=== PATIENT | female | born 1950 | race Hispanic/Latino ===

== ENCOUNTER 2018-01-13 11:34 | Emergency (ER) | payer MEDICARE ==
[~2018-01-13] VITALS: Ht 165.1 cm; Wt 88.9 kg
--- OUTSIDE RECORDS SUMMARY | 2018-01-13 11:37 | XMS REPORT | Summary of Care ---
Author Author [facility] Organization [facility] Address Unknown Phone Unavailable Encounter HQ Jacob(FIN) [id number] Date(s): 03/09/17 - 03/10/17 [facility] [address] [place] [address]- Discharge Disposition: Home or Self Care Attending Physician: Willian Seymour MD Admitting Physician: Willian Seymour MD Vital Signs 1 2 3 Most recent to oldest [Reference Range]: 167.64 cm (03/10/17 6:13 AM) 167.64 cm (03/09/17 10:49 PM) Height 98.3 DegF (03/10/17 3:46 PM) 97.9 DegF (03/10/17 10:53 AM) 98.2 DegF (03/10/17 7:38 AM) Temperature Oral [96.4-99.1 DegF] 143/73 mmHg *HI* (03/10/17 3:46 PM) 136/70 mmHg (03/10/17 10:53 AM) 144/64 mmHg *HI* (03/10/17 7:38 AM) Blood Pressure [90-140/60-90 mmHg] 17 BRMIN (03/10/17 3:46 PM) 17 BRMIN (03/10/17 10:53 AM) 17 BRMIN (03/10/17 7:38 AM) Respiratory Rate [14-20 BRMIN] 67 bpm (03/10/17 3:46 PM) 65 bpm (03/10/17 10:53 AM) 64 bpm (03/10/17 7:38 AM) Peripheral Pulse Rate [60-100 bpm] 90.455 kg (03/10/17 6:13 AM) 90.455 kg (03/09/17 10:49 PM) Weight 32.19 m2 (03/10/17 6:13 AM) 32.19 m2 (03/09/17 10:49 PM) Body Mass Index Problem List Condition Effective Dates Status Health Status Informant Hyperlipemia(Confirm Resolved ed) HTN Resolved (hypertension)(Confi rmed) Allergies, Adverse Reactions, Alerts Substance Reaction Severity Status NKDA Active Medications 1/2 NS 1,000 mL 1,000 mL, Rate: 75 ml/hr, Infuse over: 13.3 hr, Route: IV, Dosing Weight 90.455 kg, Total Volume: 1,000, Start date: 03/10/17 9:32:00 ELECTRICAL WIRER, Duration: 30 day, Sto p date: 04/09/17 9:31:00 ELECTRICAL WIRER, 2.08, m2 Start Date: 03/10/17 Stop Date: 03/10/17 Status: Discontinued amLODIPine 2.5 mg oral tablet 2.5 mg=1 tab, PO, Daily, # 30 tab, 0 Refill(s) Start Date: 03/10/17 Status: Ordered aspirin 81 mg, Route: PO, Drug form: ECTAB, ONCE, Dosing Weight 90.455, kg, Priority: ST AT, Start date: 03/10/17 5:33:00 ELECTRICAL WIRER, Stop date: 03/10/17 5:33:00 ELECTRICAL WIRER Start Date: 03/10/17 Stop Date: 03/10/17 Status: Completed aspirin 81 mg, Route: PO, Drug form: ECTAB, ONCE, Dosing Weight 90.455, kg, Priority: ST AT, Start date: 03/10/17 2:35:00 ELECTRICAL WIRER, Stop date: 03/10/17 2:35:00 ELECTRICAL WIRER Start Date: 03/10/17 Stop Date: 03/10/17 Status: Completed aspirin 81 mg tablet, chewable 81 mg, 1 tab, Route: PO, Drug form: CHEWTAB, Daily, Dosing Weight 90.455, kg, St art date: 03/10/17 9:00:00 ELECTRICAL WIRER, Duration: 30 day, Stop date: 04/08/17 9:00:00 CS T Notes: Take with food. Start Date: 03/10/17 Stop Date: 03/10/17 Status: Discontinued aspirin 81 mg tablet, chewable 81 mg=1 tab, PO, Daily, # 100 tab, 0 Refill(s) Start Date: 03/10/17 Status: Ordered atorvastatin 10 mg oral tablet 20 mg=2 tab, PO, Daily, # 100 tab, 0 Refill(s) Start Date: 03/10/17 Status: Ordered dexamethasone 10 mg, Route: IVP, ONCE, Dosing Weight 90.455, kg, Priority: STAT, Start date: 05/11/16 2:35:00 ELECTRICAL WIRER, Stop date: 03/10/17 2:35:00 ELECTRICAL WIRER Start Date: 03/10/17 Stop Date: 03/10/17 Status: Completed famotidine 20 mg, Route: IVP, ONCE, Dosing Weight 90.455, kg, Priority: STAT, Start date: 05/11/16 5:33:00 ELECTRICAL WIRER, Stop date: 03/10/17 5:33:00 ELECTRICAL WIRER Start Date: 03/10/17 Stop Date: 03/10/17 Status: Completed hydrochlorothiazide 12.5 mg oral capsule 12.5 mg, 1 tab, Route: PO, Drug form: TAB, Daily, Dosing Weight 90.455, kg, Star t date: 03/10/17 12:07:00 ELECTRICAL WIRER, Duration: 30 day, Stop date: 04/09/17 9:00:00 ELECTRICAL WIRER Notes: (Same as: Hydrodiuril). Give with food. Start Date: 03/10/17 Stop Date: 03/10/17 Status: Discontinued hydrochlorothiazide 12.5 mg oral tablet 12.5 mg=1 tab, PO, Daily, # 30 tab, 0 Refill(s) Start Date: 03/10/17 Status: Ordered Lipitor 20 mg, 2 tab, Route: PO, Drug form: TAB, Daily, Start date: 03/10/17 12:08:00 CS T, Stop date: 04/09/17 9:00:00 ELECTRICAL WIRER Notes: (Same As: Lipitor) Start Date: 03/10/17 Stop Date: 03/10/17 Status: Discontinued losartan 25 mg, 1 tab, Route: PO, Drug form: TAB, Daily, Dosing Weight 90.455, kg, Start date: 03/10/17 12:07:00 ELECTRICAL WIRER, Duration: 30 day, Stop date: 04/09/17 9:00:00 ELECTRICAL WIRER Notes: (Same as: Cozaar) Start Date: 03/10/17 Stop Date: 03/10/17 Status: Discontinued losartan 25 mg oral tablet 25 mg=1 tab, PO, Daily, # 30 tab, 0 Refill(s) Start Date: 03/10/17 Status: Ordered lovastatin 40 mg, Route: PO, Drug form: TAB, Bedtime, Dosing Weight 90.455, kg, Start date: 03/10/17 21:00:00 ELECTRICAL WIRER, Duration: 30 day, Stop date: 04/08/17 21:00:00 ELECTRICAL WIRER Start Date: 03/10/17 Stop Date: 03/10/17 Status: Deleted lovastatin 40 mg oral tablet 40 mg=1 tab, PO, Bedtime, # 30 tab, 0 Refill(s) Start Date: 03/10/17 Stop Date: 03/10/17 Status: Discontinued morphine Sulfate 2 mg, 1 mL, Route: IVP, Drug form: INJ, Q15Min, Dosing Weight 90.455, kg, PRN Ch est Pain, Start date: 03/10/17 6:57:00 ELECTRICAL WIRER, Duration: 2 doses or times, Stop pavel e: Limited # of times Notes: (Same as:MORPhine Sulfate) Start Date: 03/10/17 Stop Date: 03/10/17 Status: Discontinued nitroglycerin SL Tab 0.4 mg, 1 tab, Route: SL, Drug form: TAB, Q5Min, Dosing Weight 90.455, kg, PRN C hest Pain, Start date: 03/10/17 6:57:00 ELECTRICAL WIRER, Duration: 3 doses or times, Stop da te: Limited # of times Notes: (Same as:Nitroquick, Nitrostat)"Do Not Crush" Sublingual tablet Start Date: 03/10/17 Stop Date: 03/10/17 Status: Discontinued ondansetron 4 mg, 1 tab, Route: PO, Drug form: TAB, Q8H, Dosing Weight 90.455, kg, PRN Nause a & Vomiting, Start date: 03/10/17 6:57:00 ELECTRICAL WIRER, Duration: 30 day, Stop date: 04/09/17 6:56:00 ELECTRICAL WIRER Notes: (Same as: Zofran) Start Date: 03/10/17 Stop Date: 03/10/17 Status: Discontinued pneumococcal 13-valent vaccine 0.5 mL, Route: IM, Drug Form: INJ, Daily, Start date: 03/11/17 9:00:00 ELECTRICAL WIRER, Dura tion: 1 doses or times, Stop date: 03/11/17 9:00:00 ELECTRICAL WIRER Notes: Shake well prior to use (Same as: Yuridia 13) Start Date: 03/11/17 Stop Date: 03/10/17 Status: Canceled pneumococcal 13-valent vaccine 0.5 mL, Route: IM, Drug Form: INJ, Daily, Start date: 03/10/17 9:00:00 ELECTRICAL WIRER, Dura tion: 1 doses or times, Stop date: 03/10/17 9:00:00 ELECTRICAL WIRER Notes: Shake well prior to use (Same as: Yuridia 13) Start Date: 03/10/17 Stop Date: 03/10/17 Status: Completed potassium chloride 20 mEq oral tablet, extended release 20 mEq=1 tab, PO, Daily, # 30 tab, 0 Refill(s) Start Date: 03/10/17 Status: Ordered Robitussin-DM 5 mL, Route: PO, Drug Form: SYRP, Dosing Weight 90.455, kg, Q4H, PRN as needed f or cough, Start date: 03/10/17 9:31:00 ELECTRICAL WIRER, Duration: 30 day, Stop date: 8 9:30:00 ELECTRICAL WIRER Notes: (dextromethorphan-guaifenesin 10-100mg/5ml 10 ml oral SOLN ud) (Same as: Robitussin DM) Start Date: 03/10/17 Stop Date: 03/10/17 Status: Discontinued Saline Flush 0.9% 10 ml, Route: IVP, Drug Form: INJ, Dosing Weight 90.455, kg, Q12H, Start date: 05/11/16 9:00:00 ELECTRICAL WIRER, Duration: 30 day, Stop date: 04/08/17 21:00:00 ELECTRICAL WIRER Notes: (Same as: BD Posiflush) Start Date: 03/10/17 Stop Date: 03/10/17 Status: Discontinued Saline Flush 0.9% 10 ml, Route: IVP, Drug Form: INJ, Dosing Weight 90.455, kg, PRN, PRN Line Flush , Start date: 03/10/17 6:57:00 ELECTRICAL WIRER, Duration: 30 day, Stop date: 04/09/17 6:56:0 0 ELECTRICAL WIRER Notes: (Same as: BD Posiflush) Start Date: 03/10/17 Stop Date: 03/10/17 Status: Discontinued Saline Flush 0.9% 10 mL, Route: IVP, Drug Form: INJ, Dosing Weight 90.455, kg, PRN, PRN Line Flush , Start date: 03/09/17 22:56:00 ELECTRICAL WIRER, Duration: 30 day, Stop date: 04/08/17 22:55 :00 ELECTRICAL WIRER Notes: (Same as: BD Posiflush) Start Date: 03/09/17 Stop Date: 03/10/17 Status: Discontinued Results ELECTROLYTES 1 2 3 Most recent to oldest [Reference Range]: 142 mEq/L (03/10/17 10:24 AM) 138 mEq/L (03/10/17 12:55 AM) Sodium Lvl [135-145 mEq/L] 3.7 mEq/L (03/10/17 10:24 AM) 3.6 mEq/L (03/10/17 12:55 AM) Potassium Lvl [3.5-5.1 mEq/L] 106 mEq/L (03/10/17 10:24 AM) 105 mEq/L (03/10/17 12:55 AM) Chloride Lvl [95-109 mEq/L] 27 mEq/L (03/10/17 10:24 AM) 27 mEq/L (03/10/17 12:55 AM) CO2 [24-32 mEq/L] 12.7 mEq/L (03/10/17 10:24 AM) 9.6 mEq/L *LOW* (03/10/17 12:55 AM) AGAP [10.0-20.0 mEq/L] CHEM PANEL 1 2 3 Most recent to oldest [Reference Range]: 0.60 mg/dL (03/10/17 10:24 AM) 0.68 mg/dL (03/10/17 12:55 AM) Creatinine Lvl [0.50-1.40 mg/dL] 94 mL/min/1.73m2 1 *NA* (03/10/17 10:24 AM) 90 mL/min/1.73m2 2 *NA* (03/10/17 12:55 AM) eGFR 13 mg/dL (03/10/17 10:24 AM) 18 mg/dL (03/10/17 12:55 AM) BUN [7-22 mg/dL] 26 *HI* (03/10/17 12:55 AM) B/C Ratio [6-25] 166 mg/dL *HI* (03/10/17 10:24 AM) 107 mg/dL *HI* (03/10/17 12:55 AM) Glucose Lvl [70-99 mg/dL] 7.1 g/dL (03/10/17 10:24 AM) 7.3 g/dL (03/10/17 12:55 AM) Total Protein [6.4-8.4 g/dL] 3.6 g/dL (03/10/17 10:24 AM) 3.7 g/dL (03/10/17 12:55 AM) Albumin Lvl [3.5-5.0 g/dL] 3.5 g/dL (03/10/17 10:24 AM) 3.6 g/dL (03/10/17 12:55 AM) Globulin [2.7-4.2 g/dL] 1.0 (03/10/17 10:24 AM) 1.0 (03/10/17 12:55 AM) A/G Ratio [0.7-1.6] 8.6 mg/dL (03/10/17 10:24 AM) 9.1 mg/dL (03/10/17 12:55 AM) Calcium Lvl [8.5-10.5 mg/dL] 34 unit/L (03/10/17 10:24 AM) 34 unit/L (03/10/17 12:55 AM) ALT [0-65 unit/L] 24 unit/L (03/10/17 10:24 AM) 25 unit/L (03/10/17 12:55 AM) AST [0-37 unit/L] 71 unit/L (03/10/17 10:24 AM) 84 unit/L (03/10/17 12:55 AM) Alk Phos [39-136 unit/L] 0.3 mg/dL (03/10/17 10:24 AM) 0.2 mg/dL (03/10/17 12:55 AM) Bili Total [0.2-1.3 mg/dL] <0.1 mg/dL (03/10/17 10:24 AM) Bili Direct [0.0-0.3 mg/dL] >0.2 mg/dL (03/10/17 10:24 AM) Bili Indirect [0.0-1.0 mg/dL] 1Result Comment: The eGFR is calculated using the CKD-EPI formula. In most young, healthy individuals the eGFR will be >90 mL/min/1.73m2. The eGFR declines with age. An eGFR of 60-89 may be normal in some populations, particularly the elderly, for whom the CKD-EPI formula has not been extensively validated. Use of the eGFR is not recommended in the following populations: Individuals with unstable creatinine concentrations, including patients and those with serious co-morbid conditions. Patients with extremes in muscle mass or diet. The data above are obtained from the National Kid[employer] Disease Education Program ( NKDEP) which additionally recommends that when the eGFR is used in patients with extremes of body mass index for purposes of drug dosing, the eGFR should be mul tiplied by the estimated BMI. 2Result Comment: The eGFR is calculated using the CKD-EPI formula. In most young, healthy individuals the eGFR will be >90 mL/min/1.73m2. The eGFR declines with age. An eGFR of 60-89 may be normal in some populations, particularly the elderly, for whom the CKD-EPI formula has not been extensively validated. Use of the eGFR is not recommended in the following populations: Individuals with unstable creatinine concentrations, including patients and those with serious co-morbid conditions. Patients with extremes in muscle mass or diet. The data above are obtained from the National Kidney Disease Education Program ( NKDEP) which additionally recommends that when the eGFR is used in patients with extremes of body mass index for purposes of drug dosing, the eGFR should be mul tiplied by the estimated BMI. CARDIAC ENZYMES 1 2 3 Most recent to oldest [Reference Range]: 74 unit/L (03/10/17 10:24 AM) 77 unit/L (03/10/17 12:55 AM) Total CK [12-191 unit/L] 1.5 ng/mL (03/10/17 12:55 AM) CK MB [0.5-3.6 ng/mL] 1.9 (03/10/17 12:55 AM) CK MB Index [0.0-2.5] 0.02 ng/mL (12/23/17 10:24 AM) 0.03 ng/mL (03/10/17 3:39 AM) <0.02 ng/mL (03/10/17 12:55 AM) Troponin-I [0.00-0.40 ng/mL] 71 pg/mL (03/10/17 12:55 AM) BNP [<=100 pg/mL] LIPIDS 1 2 3 Most recent to oldest [Reference Range]: 2.59 *LOW* (03/10/17 10:24 AM) CHD Risk [3.90-5.80] 181 mg/dL (03/10/17 10:24 AM) Chol [<=199 mg/dL] 59 mg/dL (03/10/17 10:24 AM) Trig [<=149 mg/dL] 70 mg/dL (03/10/17 10:24 AM) HDL [>=61 mg/dL] 99 mg/dL (03/10/17 10:24 AM) LDL (Calculated) [<=99 mg/dL] 12 *NA* (03/10/17 10:24 AM) VLDL HEMATOLOGY 1 2 3 Most recent to oldest [Reference Range]: 4.1 K/CMM (03/10/17 10:24 AM) 7.1 K/CMM (03/10/17 12:55 AM) WBC [3.7-10.4 K/CMM] 4.55 M/CMM (03/10/17 10:24 AM) 4.64 M/CMM (03/10/17 12:55 AM) RBC [4.20-5.40 M/CMM] 13.6 g/dL (03/10/17 10:24 AM) 13.8 g/dL (03/10/17 12:55 AM) Hgb [12.0-16.0 g/dL] 39.5 % (03/10/17 10:24 AM) 40.6 % (03/10/17 12:55 AM) Hct [36.0-48.0 %] 86.8 fL (03/10/17 10:24 AM) 87.7 fL (03/10/17 12:55 AM) MCV [80.0-98.0 fL] 29.9 pg (03/10/17 10:24 AM) 29.7 pg (03/10/17 12:55 AM) MCH [27.0-31.0 pg] 34.4 g/dL (03/10/17 10:24 AM) 33.9 g/dL (03/10/17 12:55 AM) MCHC [32.0-36.0 g/dL] 13.1 % (03/10/17 10:24 AM) 13.2 % (03/10/17 12:55 AM) RDW [11.5-14.5 %] 151 K/CMM (03/10/17 10:24 AM) 157 K/CMM (03/10/17 12:55 AM) Platelet [133-450 K/CMM] 11.1 fL *HI* (03/10/17 10:24 AM) 11.1 fL *HI* (03/10/17 12:55 AM) MPV [7.4-10.4 fL] 74.6 % (03/10/17 10:24 AM) 57.9 % (03/10/17 12:55 AM) Segs [45.0-75.0 %] 23.7 % (03/10/17 10:24 AM) 30.0 % (03/10/17 12:55 AM) Lymphocytes [20.0-40.0 %] 1.2 % *LOW* (03/10/17 10:24 AM) 9.4 % (03/10/17 12:55 AM) Monocytes [2.0-12.0 %] 2.4 % (03/10/17 12:55 AM) Eosinophils [0.0-4.0 %] 0.5 % (03/10/17 10:24 AM) 0.3 % (03/10/17 12:55 AM) Basophils [0.0-1.0 %] 3.0 K/CMM (03/10/17 10:24 AM) 4.1 K/CMM (03/10/17 12:55 AM) Segs-Bands # [1.5-8.1 K/CMM] 1.0 K/CMM (03/10/17 10:24 AM) 2.1 K/CMM (03/10/17 12:55 AM) Lymphocytes # [1.0-5.5 K/CMM] 0.7 K/CMM (03/10/17 12:55 AM) Monocytes # [0.0-0.8 K/CMM] 0.2 K/CMM (03/10/17 12:55 AM) Eosinophils # [0.0-0.5 K/CMM] VIRAL - SEROLOGY 1 2 3 Most recent to oldest [Reference Range]: Negative (03/10/17 12:55 AM) Influ A [Negative] Negative (03/10/17 12:55 AM) Influ B [Negative] Immunizations Not Given Vaccine Date Status Refusal Reason pneumococcal 13-valent vaccine 03/10/17 Not Given Patient Refuses Procedures No data available for this section Social History Social History Type Response Smoking Status Never smoker; Exposure to Tobacco Smoke None; Cigarette Smoking Last 365 Days No; Reg Smoking Cessation Counseling No Assessment and Plan Extracted from: Title: Cardiology History & Author: Willian Seymour MD Date: 03/10/17 Physical Impression and Plan Chest pain with atypical characteristics for angina URI Hypertension Hyperlipidemia Plan:/ Monitor and observation Serial cardiac enzymes and EKGs to rule out myocardial ischemia. All tests have been negative so far Echocardiogram confirms normal LV systolic function with an unremarkable Doppler examination Add amlodipine low dose to optimize blood pressure control. Also add potassium to her medical regimen since she is on daily hydrochlorothiazide Patient can obtain an outpatient cardiac stress test either in my office next week or she may need to follow-up with the [facility] support
--- OUTSIDE RECORDS SUMMARY | 2018-01-13 11:37 | XMS REPORT | Continuity of Care Document ---
Author Author [facility] Interface Address Unknown Phone Unavailable Problems Problem Status Onset Date Classification Date Reported Comments Source CHEST PAIN Active 03/09/2017 [facility] ACUTE ANGINA, UNCONTROLLED HTN Active 03/09/2017 [facility] Hyperlipemia Resolved Problem 03/13/2017 [facility] HTN (<span ID="[id number]">Confirmed</span>) Resolved Problem 03/13/2017 [facility] ANGINA PECTORIS, UNSPECIFIED Active [facility] ESSENTIAL (PRIMARY) HYPERTENSION Active [facility] Medications Medication Details Route Status Patient Instructions Ordering Provider Order Date Source pneumococcal 13-valent vaccine 0.5 mL, Route: IM, Drug Form: INJ, Daily, Start date: 03/11/17 9:00:00 [employer], Duration: 1 doses or times, Stop date: 03/11/17 9:00:00 CSTNotes: Shake well prior to use (Same as: Prevnar 13) No Longer Active 03/11/2017 [facility] Lovastatin 40 mg, Route: PO, Drug form: TAB, Bedtime, Dosing Weight 90.455, kg, Start date: 03/10/17 21:00:00 [employer], Duration: 30 day, Stop date: 04/08/17 21:00:00 [employer] Inactive 03/11/2017 [facility] amLODIPine 2.5 mg oral tablet 2.5 mg=1 tab, PO, Daily, # 30 tab, 0 Refill(s) Active 03/10/2017 [facility] potassium chloride 20 mEq oral tablet, extended release 20 mEq=1 tab, PO, Daily, # 30 tab, 0 Refill(s) Active 03/10/2017 [facility] atorvastatin 10 mg oral tablet 20 mg=2 tab, PO, Daily, # 100 tab, 0 Refill(s) Active 03/10/2017 [facility] Aspirin 81 MG Chewable Tablet 81 mg=1 tab, PO, Daily, # 100 tab, 0 Refill(s) Active 03/10/2017 [facility] Lipitor 20 mg, 2 tab, Route: PO, Drug form: TAB, Daily, Start date: 03/10/17 12:08:00 [employer] TRA[employer], Stop date: 04/09/17 9:00:00 CSTNotes: (Same As: Lipitor) Inactive 03/10/2017 [facility] Losartan 25 mg, 1 tab, Route: PO, Drug form: TAB, Daily, Dosing Weight 90.455, kg, Start date: 03/10/17 12:07:00 [employer], Duration: 30 day, Stop date: 04/09/17 9:00:00 CSTNotes: (Same as: Cozaar) Inactive 03/10/2017 [facility] Hydrochlorothiazide 12.5 MG Oral Capsule 12.5 mg, 1 tab, Route: PO, Drug form: TAB, Daily, Dosing Weight 90.455, kg, Start date: 03/10/17 12:07:00 [employer], Duration: 30 day, Stop date: 04/09/17 9:00:00 CSTNotes: (Same as: Hydrodiuril). Give with food. Inactive 03/10/2017 [facility] 1/2 NS 1,000 mL 1,000 mL, Rate: 75 ml/hr, Infuse over: 13.3 hr, Route: IV, Dosing Weight 90.455 kg, Total Volume: 1,000, Start date: 03/10/17 9:32:00 [employer] TRA[employer], Duration: 30 day, Stop date: 04/09/17 9:31:00 [employer] TRA[employer], 2.08, m2 Inactive 03/10/2017 [facility] Robitussin DM 5 mL, Route: PO, Drug Form: SYRP, Dosing Weight 90.455, kg, Q4H, PRN as needed for cough, Start date: 03/10/17 9:31:00 [employer] TRA[employer], Duration: 30 day, Stop date: 04/09/17 9:30:00 CSTNotes: (dextromethorphan-g uaifenesin 10-100mg/5ml 10 ml oral SOLN ud) (Same as: Robitussin DM) Inactive 03/10/2017 [facility] Saline Flush 0.9% 10 ml, Route: IVP, Drug Form: INJ, Dosing Weight 90.455, kg, Q12H, Start date: 03/10/17 9:00:00 [employer] TRA[employer], Duration: 30 day, Stop date: 04/08/17 21:00:00 CSTNotes: (Same as: BD Posiflush) Inactive 03/10/2017 [facility] Aspirin 81 MG Chewable Tablet 81 mg, 1 tab, Route: PO, Drug form: CHEWTAB, Daily, Dosing Weight 90.455, kg, Start date: 03/10/17 9:00:00 [employer] TRA[employer], Duration: 30 day, Stop date: 04/08/17 9:00:00 CSTNotes: Take with food. Inactive 03/10/2017 [facility] Streptococcus pneumoniae serotype 1 capsular antigen diphtheria [id number] protein conjugate vaccine / Streptococcus pneumoniae serotype 14 capsular antigen diphtheria [id number] protein conjugate vaccine / Streptococcus pneumoniae serotype 18C capsular antigen d 0.5 mL, Route: IM, Drug Form: INJ, Daily, Start date: 03/10/17 9:00:00 [employer] TRA[employer], Duration: 1 doses or times, Stop date: 03/10/17 9:00:00 CSTNotes: Shake well prior to use (Same as: Prevnar 13) Inactive 03/10/2017 [facility] Saline Flush 0.9% 10 ml, Route: IVP, Drug Form: INJ, Dosing Weight 90.455, kg, PRN, PRN Line Flush, Start date: 03/10/17 6:57:00 [employer] TRAIN[employer], Duration: 30 day, Stop date: 04/09/17 6:56:00 CSTNotes: (Same as: BD Posiflush) Inactive 03/10/2017 [facility] Nitroglycerin 0.4 mg, 1 tab, Route: SL, Drug form: TAB, Q5Min, Dosing Weight 90.455, kg, PRN Chest Pain, Start date: 03/10/17 6:57:00 [employer] TRA[employer], Duration: 3 doses or times, Stop date: Limited # of timesNotes: (Same as:N itroquick, Nitrostat) "Do Not Crush" Sublingual tablet Inactive 03/10/2017 [facility] Ondansetron 4 mg, 1 tab, Route: PO, Drug form: TAB, Q8H, Dosing Weight 90.455, kg, PRN Nausea & Vomiting, Start date: 03/10/17 6:57:00 [employer] TRAINER, Duration: 30 day, Stop date: 04/09/17 6:56:00 CSTNotes: (Same as: Zofran) Inactive 03/10/2017 [facility] Morphine 2 mg, 1 mL, Route: IVP, Drug form: INJ, Q15Min, Dosing Weight 90.455, kg, PRN Chest Pain, Start date: 03/10/17 6:57:00 [employer] TRA[employer]ER, Duration: 2 doses or times, Stop date: Limited # of timesNotes: (Same as:MO RPhine Sulfate) Inactive 03/10/2017 [facility] lovastatin 40 mg oral tablet 40 mg=1 tab, PO, Bedtime, # 30 tab, 0 Refill(s) Inactive 03/10/2017 [facility] losartan 25 mg oral tablet 25 mg=1 tab, PO, Daily, # 30 tab, 0 Refill(s) Active 03/10/2017 [facility] hydrochlorothiazide 12.5 mg oral tablet 12.5 mg=1 tab, PO, Daily, # 30 tab, 0 Refill(s) Active 03/10/2017 [facility] Famotidine 20 mg, Route: IVP, ONCE, Dosing Weight 90.455, kg, Priority: STAT, Start date: 03/10/17 5:33:00 [employer] TRAINER, Stop date: 03/10/17 5:33:00 [employer] TRAINER Inactive 03/10/2017 [facility] Aspirin 81 mg, Route: PO, Drug form: ECTAB, ONCE, Dosing Weight 90.455, kg, Priority: STAT, Start date: 03/10/17 5:33:00 [employer]ORTS TRAINER, Stop date: 03/10/17 5:33:00 [employer]ORTS TRAINER Inactive 03/10/2017 [facility] Aspirin 81 mg, Route: PO, Drug form: ECTAB, ONCE, Dosing Weight 90.455, kg, Priority: STAT, Start date: 03/10/17 2:35:00 [employer]ORTS TRAINER, Stop date: 03/10/17 2:35:00 [employer]ORTS TRAINER Inactive 03/10/2017 [facility] Dexamethasone 10 mg, Route: IVP, ONCE, Dosing Weight 90.455, kg, Priority: STAT, Start date: 03/10/17 2:35:00 SPORTS TRAINER, Stop date: 03/10/17 2:35:00 SPORTS TRAINER Inactive 03/10/2017 [facility] Saline Flush 0.9% 10 mL, Route: IVP, Drug Form: INJ, Dosing Weight 90.455, kg, PRN, PRN Line Flush, Start date: 03/09/17 22:56:00 [employer]ORTS TRAINER, Duration: 30 day, Stop date: 04/08/17 22:55:00 CSTNotes: (Same as: BD Posiflush) No Longer Active 03/10/2017 [facility] Allergies, Adverse Reactions, Alerts Substance Category Reaction Severity Reaction type Status Date Reported Comments Source Immunizations Immunization Date Given Site Status Last Updated Comments Source pneumococcal 13-valent vaccine 03/10/2017 Not Given [facility] Results Order Name Results Value Reference Range Date Interpretation Comments Source CARDIAC ENZYMES Troponin-I 0.02 ng/mL 0.00 - 0.40 03/10/2017 [facility] CARDIAC ENZYMES Total CK 74 unit/L 12 - 191 03/10/2017 [facility] CHEM PANEL eGFR 94 mL/min/1.73m2 03/10/2017 Result Comment: The eGFR is calculated using the [...] from the National Kidney Disease Education Program (NKDEP) which additionally recommends that when the eGFR is used in patients with extremes of body mass index for purposes of drug dosing, the eGFR should be multiplied by the estimated BMI. [facility] CHEM PANEL Chloride Lvl 106 meq/L 95 - 109 03/10/2017 [facility] CHEM PANEL Calcium Lvl 8.6 mg/dL 8.5 - 10.5 03/10/2017 [facility] CHEM PANEL CO2 27 meq/L 24 - 32 03/10/2017 [facility] CHEM PANEL AGAP 12.7 meq/L 10.0 - 20.0 03/10/2017 [facility] CHEM PANEL Potassium Lvl 3.7 meq/L 3.5 - 5.1 03/10/2017 [facility] CHEM PANEL Sodium Lvl 142 meq/L 135 - 145 03/10/2017 [facility] CHEM PANEL BUN 13 mg/dL 7 - 22 03/10/2017 [facility] CHEM PANEL Creatinine Lvl 0.60 mg/dL 0.50 - 1.40 03/10/2017 [facility] CHEM PANEL Glucose Lvl 166 mg/dL 70 - 99 03/10/2017 [facility] CHEM PANEL AST 24 unit/L 0 - 37 03/10/2017 [facility] CHEM PANEL ALT 34 unit/L 0 - 65 03/10/2017 [facility] CHEM PANEL Alk Phos 71 unit/L 39 - 136 03/10/2017 [facility] CHEM PANEL Bili Total 0.3 mg/dL 0.2 - 1.3 03/10/2017 [facility] CHEM PANEL Bili Direct null 0.0 - 0.3 03/10/2017 [facility] CHEM PANEL Albumin Lvl 3.6 g/dL 3.5 - 5.0 03/10/2017 [facility] CHEM PANEL Total Protein 7.1 g/dL 6.4 - 8.4 03/10/2017 [facility] CHEM PANEL Globulin 3.5 g/dL 2.7 - 4.2 03/10/2017 [facility] CHEM PANEL A/G Ratio 1.0 0.7 - 1.6 03/10/2017 [facility] CHEM PANEL Bili Indirect null 0.0 - 1.0 03/10/2017 [facility] HEMATOLOGY RDW 13.1 % 11.5 - 14.5 03/10/2017 [facility] HEMATOLOGY Platelet 151 K/CMM 133 - 450 03/10/2017 [facility] HEMATOLOGY MPV 11.1 fL 7.4 - 10.4 03/10/2017 [facility] HEMATOLOGY MCV 86.8 fL 80.0 - 98.0 03/10/2017 [facility] HEMATOLOGY WBC 4.1 K/CMM 3.7 - 10.4 03/10/2017 [facility] HEMATOLOGY Hct 39.5 % 36.0 - 48.0 03/10/2017 [facility] MCH 29.9 pg 27.0 - 31.0 03/10/2017 [facility] HEMATOLOGY MCHC 34.4 g/dL 32.0 - 36.0 03/10/2017 [facility] HEMATOLOGY Hgb 13.6 g/dL 12.0 - 16.0 03/10/2017 [facility] HEMATOLOGY RBC 4.55 M/CMM 4.20 - 5.40 03/10/2017 [facility] HEMATOLOGY Lymphocytes 23.7 % 20.0 - 40.0 03/10/2017 [facility] HEMATOLOGY Lymphocytes # 1.0 K/CMM 1.0 - 5.5 03/10/2017 [facility] HEMATOLOGY Monocytes 1.2 % 2.0 - 12.0 03/10/2017 [facility] HEMATOLOGY Basophils 0.5 % 0.0 - 1.0 03/10/2017 [facility] HEMATOLOGY Segs-Bands # 3.0 K/CMM 1.5 - 8.1 03/10/2017 [facility] HEMATOLOGY Segs 74.6 % 45.0 - 75.0 03/10/2017 [facility] LIPIDS CHD Risk 2.59 3.90 - 5.80 03/10/2017 [facility] LIPIDS Trig 59 mg/dL <=149 mg/dL 03/10/2017 [facility] LIPIDS Chol 181 mg/dL <=199 mg/dL 03/10/2017 [facility] LIPIDS VLDL 12 03/10/2017 [facility] LIPIDS LDL (Calculated) 99 mg/dL <=99 mg/dL 03/10/2017 [facility] LIPIDS HDL 70 mg/dL >=61 mg/dL 03/10/2017 [facility] CARDIAC ENZYMES Troponin-I 0.03 ng/mL 0.00 - 0.40 03/10/2017 [facility] CARDIAC ENZYMES Troponin-I null 0.00 - 0.40 03/10/2017 [facility] CARDIAC ENZYMES BNP 71 pg/mL <=100 pg/mL 03/10/2017 [facility] CARDIAC ENZYMES CK MB 1.5 ng/mL 0.5 - 3.6 03/10/2017 [facility] CARDIAC ENZYMES Total CK 77 unit/L 12 - 191 03/10/2017 [facility] CARDIAC ENZYMES CK MB Index 1.9 0.0 - 2.5 03/10/2017 [facility] CHEM PANEL eGFR 90 mL/min/1.73m2 03/10/2017 Result Comment: The eGFR is calculated using the [...] from the National Kidney Disease Education Program (NKDEP) which additionally recommends that when the eGFR is used in patients with extremes of body mass index for purposes of drug dosing, the eGFR should be multiplied by the estimated BMI. [facility] CHEM PANEL A/G Ratio 1.0 0.7 - 1.6 03/10/2017 [facility] CHEM PANEL Glucose Lvl 107 mg/dL 70 - 99 03/10/2017 [facility] CHEM PANEL BUN 18 mg/dL 7 - 22 03/10/2017 [facility] CHEM PANEL Creatinine Lvl 0.68 mg/dL 0.50 - 1.40 03/10/2017 [facility] CHEM PANEL Sodium Lvl 138 meq/L 135 - 145 03/10/2017 [facility] CHEM PANEL Potassium Lvl 3.6 meq/L 3.5 - 5.1 03/10/2017 [facility] CHEM PANEL Chloride Lvl 105 meq/L 95 - 109 03/10/2017 [facility] CHEM PANEL CO2 27 meq/L 24 - 32 03/10/2017 [facility] CHEM PANEL Calcium Lvl 9.1 mg/dL 8.5 - 10.5 03/10/2017 [facility] CHEM PANEL Total Protein 7.3 g/dL 6.4 - 8.4 03/10/2017 [facility] CHEM PANEL Albumin Lvl 3.7 g/dL 3.5 - 5.0 03/10/2017 [facility] CHEM PANEL ALT 34 unit/L 0 - 65 03/10/2017 [facility] CHEM PANEL AST 25 unit/L 0 - 37 03/10/2017 [facility] CHEM PANEL Alk Phos 84 unit/L 39 - 136 03/10/2017 [facility] CHEM PANEL Bili Total 0.2 mg/dL 0.2 - 1.3 03/10/2017 [facility] CHEM PANEL Globulin 3.6 g/dL 2.7 - 4.2 03/10/2017 [facility] CHEM PANEL AGAP 9.6 meq/L 10.0 - 20.0 03/10/2017 [facility] CHEM PANEL B/C Ratio 26 6 - 25 03/10/2017 [facility] HEMATOLOGY Hgb 13.8 g/dL 12.0 - 16.0 03/10/2017 [facility] HEMATOLOGY RBC 4.64 M/CMM 4.20 - 5.40 03/10/2017 [facility] HEMATOLOGY Hct 40.6 % 36.0 - 48.0 03/10/2017 [facility] HEMATOLOGY WBC 7.1 K/CMM 3.7 - 10.4 03/10/2017 [facility] HEMATOLOGY MCHC 33.9 g/dL 32.0 - 36.0 03/10/2017 [facility] HEMATOLOGY MCH 29.7 pg 27.0 - 31.0 03/10/2017 [facility] HEMATOLOGY MCV 87.7 fL 80.0 - 98.0 03/10/2017 [facility] HEMATOLOGY RDW 13.2 % 11.5 - 14.5 03/10/2017 [facility] HEMATOLOGY MPV 11.1 fL 7.4 - 10.4 03/10/2017 [facility] HEMATOLOGY Platelet 157 K/CMM 133 - 450 03/10/2017 [facility] HEMATOLOGY Eosinophils 2.4 % 0.0 - 4.0 03/10/2017 [facility] HEMATOLOGY Monocytes 9.4 % 2.0 - 12.0 03/10/2017 [facility] HEMATOLOGY Segs 57.9 % 45.0 - 75.0 03/10/2017 [facility] HEMATOLOGY Lymphocytes 30.0 % 20.0 - 40.0 03/10/2017 [facility] HEMATOLOGY Eosinophils # 0.2 K/CMM 0.0 - 0.5 03/10/2017 [facility] HEMATOLOGY Monocytes # 0.7 K/CMM 0.0 - 0.8 03/10/2017 [facility] HEMATOLOGY Lymphocytes # 2.1 K/CMM 1.0 - 5.5 03/10/2017 [facility] HEMATOLOGY Segs-Bands # 4.1 K/CMM 1.5 - 8.1 03/10/2017 [facility] Basophils 0.3 % 0.0 - 1.0 03/10/2017 [facility] VIRAL - SEROLOGY Influ A Negative (03/10/17 12:55 AM) Negative 03/10/2017 [facility] VIRAL - SEROLOGY Influ B Negative (03/10/17 12:55 AM) Negative 03/10/2017 [facility] Chest 1view DX Chest 1view DX XR CHEST 1 VIEW HISTORY: Chest pain - COMPARISON: None. FINDINGS: The lungs are clear. The heart and vascular markings are normal. No pleural abnormality. The bones are intact. IMPRESSION: No active process. SL: DONA 03/10/2017 - - Read by: Jesse Griffin MD Dictated Date/time: 03/10/17 00:38 Electronically Signed by: Jesse Griffin MD 03/10/17 00:38 FINAL REPORT [facility] Vital Signs Vital Sign Value Date Comments Source Systolic (mm Hg) 143 03/10/2017 [facility] Diastolic (mm Hg) 73 03/10/2017 [facility] Respitory Rate 17 03/10/2017 [facility] Heart Rate 67 03/10/2017 [facility] Temperature Oral (F) 98.3 F 03/10/2017 [facility] Respitory Rate 17 03/10/2017 [facility] Heart Rate 65 03/10/2017 [facility] Systolic (mm Hg) 136 03/10/2017 [facility] Diastolic (mm Hg) 70 03/10/2017 [facility] Temperature Oral (F) 97.9 F 03/10/2017 [facility] Heart Rate 64 03/10/2017 [facility] Respitory Rate 17 03/10/2017 [facility] Systolic (mm Hg) 144 03/10/2017 [facility] Diastolic (mm Hg) 64 03/10/2017 [facility] Temperature Oral (F) 98.2 F 03/10/2017 [facility] BMI Calculated 32.19 03/10/2017 [facility] Weight 90.455 03/10/2017 [facility] Height 167.64 cm 03/10/2017 [facility] Weight 90.455 03/10/2017 [facility] BMI Calculated 32.19 03/10/2017 [facility] Height 167.64 cm 03/10/2017 [facility] Encounters Location Location Details Encounter Type Encounter Number Reason For Visit Attending Provider ADM Date DC Date Status Source [facility] Observation [id number] Willian Seymour 03/10/2017 03/10/2017 [facility] Procedures Procedure Code Date Perfomer Comments Source
[2018-01-13] MEDS ORDERED: SODIUM CHLORIDE 0.9% 1000ML 1,000 ML IV STA (11:58)
[2018-01-13 12:16] LABS: BASOPHILS % 0.4 % (0.0-1.0); EOSINOPHILS # (AUTO) 0.1 (0.0-0.4); EOSINOPHILS % 1.9 % (0.0-6.0); HEMATOCRIT 42.3 % (34.2-44.1); HEMOGLOBIN 14.1 g/dL (12.0-16.0); LYMPHOCYTES # (AUTO) 2.6 (1.0-3.2); LYMPHOCYTES % 37.5 % (18.0-39.1); MEAN CORPUSCULAR HEMOGLOBIN 29.7 pg (28-32); MEAN CORPUSCULAR HGB CONC 33.3 g/dL (31-35); MEAN CORPUSCULAR VOLUME 89.1 fL (81-99); MONOCYTES # (AUTO) 0.4 (0.2-0.8); MONOCYTES % 6.5 % (4.4-11.3); NEUTROPHILS # (AUTO) 3.6 (2.1-6.9); NEUTROPHILS % 53.4 % (38.7-80.0); PLATELET COUNT 196 x10e3/uL (140-360); RED BLOOD COUNT 4.75 x10e6/uL (3.6-5.1); RED CELL DISTRIBUTION WIDTH 12.5 % (11.7-14.4)
[2018-01-13] MEDS ORDERED: KETOROLAC TROMETHAMINE 30 MG/ML VIAL IV ONE (12:30)
[2018-01-13] MEDS ORDERED: FAMOTIDINE 20 MG/2 ML VIAL IV ONE (12:30)
[2018-01-13] MEDS ORDERED: ONDANSETRON HCL INJ 2 MG/ML VIAL IV ONE (12:30)
[2018-01-13] MEDS ORDERED: HYDROCODONE/APAP 5MG-325MG TAB PO ONE (12:30)
[2018-01-13] MEDS ORDERED: CEFTRIAXONE SOD 1 GM VIAL IV ONE (12:30)
[2018-01-13] MEDS ORDERED: IBUPROFEN 200 MG TAB PO ONE (12:30)
[2018-01-13 12:31] LABS: ALANINE AMINOTRANSFERASE 30 IU/L (0-55); ALBUMIN 4.1 g/dL (3.5-5.0); ALBUMIN/GLOBULIN RATIO 1.4 (0.8-2.0); ALKALINE PHOSPHATASE 73 IU/L (40-150); ANION GAP 12.6 mmol/L (8-16); BLOOD UREA NITROGEN 17 mg/dL (7-26); BUN/CREATININE RATIO 22 (6-25); CALCIUM 10.1 mg/dL (8.4-10.2); CARBON DIOXIDE 28 mmol/L (22-29); CHLORIDE 105 mmol/L (98-107); CREATININE, SERUM 0.78 mg/dL (0.57-1.11); EST GLOMERULAR FILTRATION RATE > 60 ML/MIN (60-); GLUCOSE 112 mg/dL (74-118); POTASSIUM 3.6 mmol/L (3.5-5.1); SODIUM 142 mmol/L (136-145)
--- NOTE | 2018-01-13 13:18 | Diagnostic Imaging Report ---
CT Abdomen and Pelvis without contrast INDICATION: Left upper quadrant pain, nausea TECHNIQUE: Thin collimation axial images obtained from the diaphragm to the level of the pubic symphysis without nonionic intravenous contrast. RADIATION DOSE: Total DLP: 690.6 mGy*cm Estimated effective dose: (DLP x 0.015 x size factor) mSv CTDIvol has been reviewed. It is below the limits set by the Radiation Protocol Committee (RPC). COMPARISON: None. ABDOMEN FINDINGS: Lung Bases: Subsegmental atelectasis in the lingula. The visualized portion of the mediastinum is normal. Liver: Decreased attenuation. No mass. Gallbladder: Absent. No ductal dilatation. Pancreas: Normal attenuation without mass. Spleen: Normal size without mass. Adrenal Glands: No evidence for mass. Kidneys: Right: No renal calculus. No cortical mass or hydronephrosis Left: No renal calculus. No cortical mass. The collecting system is mildly distended. No perinephric inflammation Lymph Nodes: No enlarged abdominal or retroperitoneal lymph nodes. Mild haziness of the small bowel mesentery without associated lymphadenopathy. Aorta: Normal in diameter with scattered calcifications PELVIS FINDINGS: Bowel: Stomach: Normal. Small Bowel: Normal in caliber with normal wall thickness. Large Bowel: Normal in caliber with normal wall thickness. Appendix: Normal. Bladder: Intraluminal calcification in the posterior bladder measures 4 mm. Ureters: The left ureter is mildly distended throughout its course. No calculus. Right ureter is normal. The uterus is absent. No adnexal mass. Bones: Mild degenerative changes of the lower lumbar spine particularly at L5-S1. There is a bone island in the roof of the left acetabulum. Mild burden of osteitis condensans ilii. Soft tissues: Unremarkable. IMPRESSION: 1. Intraluminal bladder calculus with mild left ureteral and collecting system distention suggestive of recent stone passage. No intrarenal calculi. 2. Steatosis. Cholecystectomy. Signed by: Dr. Markell Rushing MD on 01/13/2018 1:14 PM
[2018-01-13 13:47] LABS: CLARITY,URINE HAZY (CLEAR); COLOR,URINE YELLOW (YELLOW); LEUKOCYTE ESTERASE ,URINE TRACE (NEGATIVE)
[2018-01-13 13:48] LABS: BILIRUBIN,URINE NEGATIVE (NEGATIVE); KETONES,URINE NEGATIVE (NEGATIVE); NITRITE,URINE NEGATIVE (NEGATIVE); PROTEIN,URINE DIPSTICK NEGATIVE (NEGATIVE); URINE UROBILINOGEN 0.2 mg/dL (0.2 - 1)
[2018-01-13 13:55] LABS: BACTERIA,URINE FEW /HPF; EPITHELIAL CELLS,URINE FEW /LPF; RBC,URINE 21-50 /HPF (0-5); WBC,URINE (MAN) 0-5 /HPF (0-5)
[2018-01-13 14:48] VITALS: BP 132/56
== END 2018-01-13 14:58 | disposition home or self-care (01) ==
LOC: ER 11:34
DX: R10.12 Left upper quadrant pain (principal); R11.0 Nausea; N20.1 Calculus of ureter; R53.1 Weakness; I10 Essential (primary) hypertension
CPT/HCPCS: 36415; 74176; 80053; 81001; 85025; 87086; 93005; 99284; J0696; J1885; J2405; J7030

== ENCOUNTER 2018-03-10 09:34 | Emergency (ER) | payer MEDICARE ==
[~2018-03-10] VITALS: Ht 165.1 cm; Wt 88.9 kg
--- OUTSIDE RECORDS SUMMARY | 2018-03-10 09:37 | XMS REPORT ---
[facility] Address Unknown Phone Unavailable Care Team Providers Care Manager Membership Name Role Phone Kayli ZAYAS Unavailable Unavailable Problems This patient has no known problems. Allergies, Adverse Reactions, Alerts This patient has no known allergies or adverse reactions. Medications This patient has no known medications. Results Test Description Test Time Test Comments Text Results Atomic Results Result Comments CT ABDOMEN/PELVIS WO 2018-01-13 13:07:00 [place] [id number] Patient Name: SOBEIDA SPEARS MR #: [id number] : 1950 Age/Sex: 67/F Req #: [id number] Adm Physician: Ordered by: ROBEL ZAYAS MD Report #: [id number] Location: ER Room/Bed: Procedure: [id number] CT/CT ABDOMEN/PELVIS WO Exam Date: 01/13/18 Exam Time: 1230 REPORT STATUS: Signed CT Abdomen and Pelvis without contrast INDICATION: Left upper quadrant pain, nausea TECHNIQUE: Thin collimation axial images obtained from the diaphragm to the level of the pubic symphysis without nonionic intravenous contrast. RADIATION DOSE: Total DLP: 690.6 mGy*cm Estimated effective dose: (DLP x 0.015 x size factor) mSv CTDIvol has been reviewed. It is below the limits set by the Radiation Protocol Committee (RPC). COMPARISON: None. ABDOMEN FINDINGS: Lung Bases: Subsegmental atelectasis in the lingula. The visualized portion of the mediastinum is normal. Liver: Decreased attenuation. No mass. Gallbladder: Absent. No ductal dilatation. Pancreas: Normal attenuation without mass. Spleen: Normal size without mass. Adrenal Glands: No evidence for mass. Kidneys: Right: No renal calculus. No cortical mass or hydronephrosis Left: No renal calculus. No cortical mass. The collecting system is mildly distended. No perinephric inflammation Lymph Nodes: No enlarged abdominal or retroperitoneal lymph nodes. Mild haziness of the small bowel mesentery without associated lymphadenopathy. Aorta: Normal in diameter with scattered calcifications PELVIS FINDINGS: Bowel: Stomach: Normal. Small Bowel: Normal in caliber with normal wall thickness. Large Bowel: Normal in caliber with normal wall thickness. Appendix: Normal. Bladder: Intraluminal calcification in the posterior bladder measures 4 mm. Ureters: The left ureter is mildly distended throughout its course. No calculus. Right ureter is normal. The uterus is absent. No adnexal mass. Bones: Mild degenerative changes of the lower lumbar spine particularly at L5-S1. There is a bone island in the roof of the left acetabulum. Mild burden of osteitis condensans ilii. Soft tissues: Unremarkable. IMPRESSION: 1. Intraluminal bladder calculus with mild left ureteral and collecting system distention suggestive of recent stone passage. No intrarenal calculi. 2. Steatosis. Cholecystectomy. Signed by: Dr. Mc Rushing MD on 01/13/2018 1:14 PM Dictated By: MC RUSHING MD [id number] Transcribed By: TITO on 01/13/18 1314 COPY TO: ROBEL ZAYAS MD
--- NOTE | 2018-03-10 09:55 | NUR ---
2ND ATTEMPT TO VOID UNSUCCESSFUL.
--- NOTE | 2018-03-10 10:34 | NUR ---
4TH ATTEMPT TO VOID. SPOKE WITH PT REGARDING POSSIBLE CHA. PT STATES WANTING TO TRY TO VOID ON HER OWN ONE MORE TIME.
== END 2018-03-10 10:41 | disposition home or self-care (01) ==
LOC: FSED 09:34
DX: R30.0 Dysuria (principal); N30.91 Cystitis, unspecified with hematuria
CPT/HCPCS: 81003; 87086; 99283